=== PATIENT | male | born 1945 | race Caucasian/White ===

== ENCOUNTER → 2025-05-09 13:37 | Outpatient (REF) | payer MEDICARE, SELFPAY | LOC: RAD 13:37 | PROVIDERS: ATTENDING PHYSICIAN Podiatrist Foot & Ankle Surgery; FAMILY PHYSICIAN Family Medicine; REFERRING PHYSICIAN Surgery Vascular Surgery | DX: S81.801S Unspecified open wound, right lower leg, sequela (principal); I87.2 Venous insufficiency (chronic) (peripheral) | CPT/HCPCS: 93970 ==

== ENCOUNTER 2025-05-30 06:02 | Day surgery (SDC) | payer MEDICARE, SELFPAY ==
[2025-05-23 09:06] VITALS: BMI 29.5
--- NOTE | 2025-05-25 12:50 | PTCARENOTE ---
Leigh Ann in office made aware of Hgb 7.5 and INR 1.99.
--- NOTE | 2025-05-25 13:23 | PTCARENOTE ---
Dr. Park made aware of Hgb 7.5. Requesting T&S be ordered by surgeon. Leigh Ann in office made aware.
[2025-05-30] VITALS (22 sets, daily range): BP systolic 97–209; BP diastolic 51–194; BMI 28.6
[2025-05-30] MEDS: PERIDEX 0.12% ORAL RINSE 15 ML PO (07:04)
[2025-05-30] MEDS: NSS 500 IV (07:04)
--- NOTE | 2025-05-30 07:25 | W.SUR.PREOP ---
Pre-Operative Surgical Note
-
I have examined this patient prior to the performance of the scheduled procedure.
The patient's condition is unchanged from the time of the current History and
Physical and the patient is able to undergo the scheduled procedure.
--- NOTE | 2025-05-30 08:49 | OR.RPT ---
Operative Report
Operative Report
Date of Operation: 05/30/2025
Pre Op Diagnosis: Symptomatic venous insufficiency, right lower extremity
Post Op Diagnosis: Symptomatic venous insufficiency, right lower extremity
Procedure: Radiofrequency endovenous ablation of right great saphenous vein (distal calf puncture site)
Surgeon: Seun Alicea III, MD
Assembly And Packing Supervisor: Casey Sampson MD PhD PGY-7
Anesthesia: Sedation/local
Complications: None
Estimated Blood Loss: Minimal
History and Indications for Procedure: 79-year-old male with symptomatic venous insufficiency of the right lower extremity
Procedure in Detail: Mg Cordova was correctly identified and placed supine on the operating table. After adequate induction of anesthesia the right leg was frog-legged and the table placed into a reverse Trendelenburg position. The right leg was
prepped and draped in the usual sterile fashion. A timeout procedure was performed with the nursing and anesthesia staff confirming the patient's identity as well as the nature and laterality of the procedure.
The right great saphenous vein was identified using ultrasound guidance. The vein was visualized from the ankle to the saphenofemoral junction. An appropriate site for access was identified at the distal calf. Local anesthesia was infiltrated
into the proposed puncture site. The right great saphenous vein was accessed with a micropuncture needle under ultrasound guidance and the 7 [place] sheath was placed. Under direct ultrasound guidance the 100 cm length /7 cm tip radiofrequency
ablation catheter was advanced towards the saphenofemoral junction. Using a real-time direct ultrasound measurement the tip of the catheter was positioned 2.5 cm from the saphenofemoral junction. The position of the catheter was then externally
marked using the white plastic doughnut on the catheter at the sheath exit site. Using ultrasound guidance Tumescent solution was then infiltrated circumferentially around the right great saphenous vein from the sheath insertion site to the tip of
the catheter near the saphenofemoral junction. At this point the table was flattened out. The right great saphenous vein was then ablated using 2 treatment cycles at each segment. Once completed the sheath and catheter were removed. Direct
manual pressure was held on the puncture site and hemostasis was achieved. A sterile dressing was applied.
The patient's leg was cleaned and then wrapped with an Brian wrap from the toes to the proximal thigh. The patient tolerated the procedure well was taken to the recovery room in good condition.
Attestation: I was present and responsible for the entire procedure
Signed:
Seun Alicea III, MD
Vascular Surgery
[facility]
--- NOTE | 2025-05-30 08:51 | W.SUR.POST ---
Surgical Immediate Post Op
Note
Pre Op Diagnosis: RLE veinous reflux
Post Op Diagnosis: RLE veinous reflux
Procedure Performed: RLE GS radiofrequency ablation
Primary Surgeon: Seun Alicea MD
Secondary Surgeons: Casey Sampson MD PhD
Anesthesia: Per Anesthesia
Estimated Blood Loss: 1 cc
Fluids: Per Anesthesia
Drains/Shunts: NA
Specimens/Cultures: NA
Doppler/Duplex/Angio (Y/N): Vascular US of RIGHT GS
Complications: None
Operative Findings: Successful radiofrequency ablation of RLE GSV wih stick site at mid-calf
--- NOTE | 2025-05-30 09:16 | SUR.PHASEI ---
Pt still unresponsive. Sternal rub performed and no response. Dr Jean made aware and in to evaluate. Nail med pressure applied to b/l hands and pt withdrew b/l. Pupils equal and reactive. Per Dr Jean continue to monitor and will re-evaluate.
Bs checked and =104.
[2025-05-30 09:20] LABS: Glucose - Point of Care 104 mg/dl (70-99)
--- NOTE | 2025-05-30 10:40 | W.PN.UPDATE ---
Update Note
Progress Note Update
Called to bedside by RN in [facility] recovery bay 8
Patient noted to be having some slurred/slow speech.
Patient evaluated at bedside with present. Patient can easily identify objects and repeat words but speech is thick/slurred. Patient did recall the year being 1924.
Stroke alert initiated. Patient went to CT with neurology at bedside.
CT negative for bleed/infarct
After CT scan complete patient's speech seemed clearer. He correctly answered all questioning.
Returned to [facility] recovery. Will continue to monitor speech over the next hour per recommendation of neurologist.
All questions answered at bedside. Dr. Alicea aware.
--- NOTE | 2025-05-30 10:43 | CON.NEURO ---
Addendum entered and electronically signed by Don Renee MD 05/30/25 13:47:
Studies reviewed.
I have personally examined the patient. I reviewed and agree with the SOLE STITCHER HAND's Note.
My addenda:
Awake, alert, interactive. No acute distress.
Speech mildly thick.
Follows 2-step requests w/o difficulty. No tremor.
Extra-ocular movements grossly intact.
Facial movements full and symmetric. Hearing intact to normal conversational volume.
Normal UE movements bilaterally.
Neck: full ROM.
Chest: no dyspnea
Heart: no JVD
Ext: (-) Clubbing, (-) Cyanosis, (-) Edema
IMPRESSIONS/RECOMMENDATIONS:
Abrupt onset of dysarthria. Initially seeming consistent with acute onset stroke, now not thought to be so based on unremarkable plain CT of head, unremarkable CT perfusion, and unremarkable CT angiogram. Now more likely secondary to needed
sedation.
Continue usual therapies
Goal of normotension
Patient will require outpatient evaluation for cervical lymphadenopathy of unclear etiology
D/W patient / family / nursing
Total Critical Care Time=�40 minutes.
The neurological system is affected and the action required by me to prevent further deterioration or potential was control over the item listed first in the Impressions and Recommendations section of this note.
I was present and personally examined the patient.� I discussed patient care with other professional health care providers.
Also discussed with family.
All questions answered.
Will continue to follow as needed.
Original Note:
Documented by User: Laurie Molina NP 05/30/25 13:12
Neuro Assessment/Plan
Assessment
The patient is a 79 year old male with a past medical history of HTN, afib on Eliquis, anemia, chronic venous insufficiency, presented to [facility] on 05/29/2025 for vascular procedure becoming dysarthric immediately following prompting a stroke alert.
Head CT:
1. No CT evidence for acute intracranial hemorrhage or transcortical infarct.
2. Mild to moderate periventricular white matter leukoaraiosis.
3. Mild diffuse cerebral and cerebellar volume loss.
4. Low-lying right cerebellar tonsil.
5. Mild sphenoid sinusitis.
ASPECT score: 10
NECK CTA:
1. MODERATE CERVICAL LYMPHADENOPATHY (largest lymph node 2.5 cm in the right posterior triangle). Diagnostic possibilities are (1) malignant lymphadenopathy (lymphoma or metastatic disease) or (2) benign infectious or inflammatory lymphadenopathy.
2. Lobular asymmetric soft tissue in the left side of the base of the tongue and left hypopharynx partially effacing the left vallecula. Diagnostic possibilities are (1) asymmetric tonsillar hypertrophy or (2) squamous cell carcinoma.
3. Large 4.4 cm solid nodule in the right lobe of the thyroid gland.
4. Mild mediastinal lymphadenopathy.
5. Moderate-sized right and small left pleural effusions.
6. Mild calcific atherosclerotic plaque in both proximal ICAs causing less than 25% diameter stenosis.
7. Severe multilevel cervical discogenic degenerative disease with small disc-osteophyte complexes causing mild multilevel spinal cord compression and central canal stenosis.
HEAD CTA:
1. Moderate calcific atherosclerotic plaque in both intracranial internal carotid arteries.
2. Mild periventricular white matter leukoaraiosis in both cerebral hemispheres.
3. Low-lying right cerebellar tonsil.
Plan
Impression: abrupt onset of dysphasia and confusion most likely as a side effect from anesthesia considering symptoms improving vs stroke
-obtain head CT
-obtain head and neck CTA
-continue Eliquis when approved by vascular
-if speech does not improve completely, consider brain MRI to rule out stroke
-follow up with PCP regarding CTA findings
All questions encouraged and answered, plan of care discussed with Dr. Renee, vascular surgery, patient and
Consultation
Order
Date of Consultation: 05/30/25
Requesting Provider: vascular surgery
Reason for Consult: stroke alert
Subjective/Objective
Subjective Data
Date of Service: May 30, 2025
The patient is a 79 year old male with a past medical history of HTN, afib on Eliquis, anemia, chronic venous insufficiency presented to [facility] on 05/29/2025 for vascular procedure becoming dysarthric immediately following prompting a stroke alert.
His last dose of Eliquis was on Thursday. 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 This has not resulted in
meaningful wound healing by itself and vascular recommended ablation. This morning he went in for endovenous ablation of right great saphenous vein around 10:10 and was asymptomatic. Had propofol during procedure. Came out of procedure around 10:30
and was noted to be dysarthric. Stroke alert called. His NIHSS was 2 for dysarthria and confusion. He was taken to CT. Head CT showed no acute intracranial abnormality. CTP unrevealing. CTA did not show any significant stenosis or LVO. After imaging
symptoms resolved and NIHSS 0 not a TNK candidate.
Objective Data
Vital Signs
Temp Pulse Resp BP Pulse Ox
97.2 F 67 15 146/91 98
05/30/25 09:30 05/30/25 10:00 05/30/25 10:00 05/30/25 09:58 05/30/25 09:45
Patient Allergies
No Known Allergies Allergy (Verified 06/15/20 07:35)
CVA Assessment
Onset of Stroke Symptoms
Onset of symptoms known: Yes
Date of onset of symptoms: 05/30/25
Time of onset of symptoms: 10:30
Time pt last seen normal is known: Yes
Date last time pt seen normal: 05/30/25
Time last time pt seen normal: 10:10
NIH Stroke Score
Level of Consciousness: 0 - Alert
LOC Questions: 1-Answers one correctly
LOC Commands: 0-Performs both correctly
Best Horizontal Gaze: 0-Normal
Visual Chowdhury: 0=Normal, no visual loss
Facial Palsy: 0=Normal, symmetrical
Motor - Right Arm: 0=No drift 10 seconds
Motor - Left Arm: 0=No drift 10 seconds
Motor - Right Le-No drift 5 seconds
Motor - Left Le-No drift 5 seconds
Limb Ataxia: 0-Absent
Sensation: 0-Normal
Best Language: 0-No aphasia
Dysarthria: 1-Mild slurring
Extinction and Inattention: 0-No abnormality
NIH Total Score:: 2
Tenecteplase Contraindications
Inclusion and Exclusion criteria reviewed: Yes
IAT Contraindications: NIHSS < 6
Physical Exam
-
General: No Apparent Distress and Comfortable
Eyes: Round OU
HEENT: Normocephalic, Atraumatic and Anicteric
Neck: Full Range of Motion
Respiratory: No Dyspnea
Cardiac: No JVD
GI: Non-distended
Skin: Unremarkable
Extremities: No Clubbing, No Cyanosis and No Edema
Psych: Unremarkable
Extended Neurological Exam
Mood & Affect: Mood Unremarkable
Attention Span & Concentration: Awake, Alert, Interactive and Other (oriented to person, month but not year)
Memory: Vague and Incomplete Historian
Speech: Dysarthric
Cranial Nerve II: Left Eye: Visual Chowdhury Intact
Cranial Nerve II: Right Eye: Visual Chowdhury Intact
Cranial Nerves III, IV, : Extraocular Movement: Extraocular Movement Full in all Directions
Cranial Nerve VII: Facial Symmetry: Normal Facial Symmetry
Cranial Nerve VIII: Hearing: Unremarkable Hearing to Normal Conversational Volume
Cranial Nerves IX, X: Palate Movement: Palate Elevation Symmetric
Cranial Nerve XII: Tongue Protusion: Midline
Muscle Strength, Overall: Full Throughout
Pronator Drift: No Drift in Upper Extremities and No Drift in Lower Extremities
Deep Tendon Reflexes: Unremarkable Throughout
Touch Sensation: Unremarkable and Double Simultaneous Stimulation Unremarkable
Coordination: [id number] Testing Unremarkable and Reaches for Objects without Difficulty
Medications
-
Active Medications
Generic Name Dose Route Start Last Admin
Trade Name Freq PRN Reason Stop Dose Admin
Acetaminophen 650 mg 05/30/25 08:39
Acetaminophen 325 Mg Tablet PO 06/27/25 08:38
Q4HPRN PRN
mild pain
Fentanyl Citrate 25 mcg 05/30/25 07:21
Fentanyl (50 Mcg/Ml) 100 Mcg/2 Ml Ampul IV 05/31/25 07:21
[id number] PRN
shivers
Hydromorphone HCl 0.25 mg 05/30/25 07:21
Hydromorphone 0.25 Mg/0.5 Ml Syringe IV 05/31/25 07:21
[id number] PRN
severe pain
Sodium Chloride 500 mls @ 40 mls/hr 05/30/25 06:00 05/30/25 07:04
Nss IV 05/30/25 18:29 500 mls
[id number] LEESA Administration
Parenteral Electrolytes 1,000 mls @ 100 mls/hr 05/30/25 07:30
Normosol-R/Plasmalyte-A IV 05/31/25 07:21
PER PROTOCOL LEESA
Morphine Sulfate 1 mg 05/30/25 07:21
Morphine 2 Mg/Ml Syringe IV 05/31/25 07:21
[id number] PRN
moderate pain
Ondansetron HCl 4 mg 05/30/25 07:21
Ondansetron 4 Mg/2 Ml Vial IV 05/31/25 07:21
PACU-ONCEPRN PRN
nausea/vomiting
Prochlorperazine Edisylate 5 mg 05/30/25 07:21
Prochlorperazine 10 Mg/2 Ml Vial IV 05/31/25 07:21
PACU-ONCEPRN PRN
nausea/vomiting
Sodium Chloride 0 flush 05/29/25 15:00
Sodium Chloride 0.9% (Flush) Syringe IV 06/26/25 14:59
PER PROTOCOL LEESA
Home Medications
�Medication �Instructions �Recorded
apixaban 5 mg tablet (Eliquis) 5 mg PO BID #60 tabs 05/12/20
amlodipine 5 mg tablet 5 mg PO DAILY 05/19/25
furosemide 40 mg tablet 40 mg PO DAILY 05/19/25
losartan 100 mg tablet 100 mg PO DAILY 05/19/25
metoprolol succinate 50 mg 50 mg PO BID 05/19/25
tablet,extended release 24 hr
multivitamin 1 tab PO DAILY 05/19/25
prednisone 5 mg tablet 5 mg PO DAILY 05/19/25

Documented by User: Don Renee MD 05/30/25 13:42
CVA Assessment
NIH Stroke Score
NIH Total Score:: 2
Review of Systems
-
History Source: Patient
All other systems: Reviewed and negative
EENT: Negative Swallowing Difficulty
Respiratory: Negative Trouble Breathing
Cardiac: Negative Chest Pain
[2025-05-30 11:35] LABS: Glucose - Point of Care 96 mg/dl (70-99)
--- NOTE | 2025-05-30 12:34 | W.PN.UPDATE ---
Update Note
Progress Note Update
Reassessed pt at bedside with present. Pt has fully returned to baseline, no slurring of speech noted. Follows all commands. in agreement.
Pt is cleared for DC. Dr Alicea and Dr Renee aware.
--- NOTE | 2025-05-30 14:02 | RR ---
Addendum entered by Juan Alberto Beavers RN 05/30/25 14:03:
initialized 05/30/25 at 10:25
Original Note:
A Rapid Response was called on this patient, please see Rapid Response form.
--- NOTE | 2025-05-30 14:08 | PTCARENOTE ---
10:00 received pt from PACU into bay 7. Pt drowsy still under effects of anesthesia, follows simple commands TAVAREZ, mild slurred speech noted. Pt has full dentures removed. BP 146/91 afib on monitor HR 67. Will Monitor pt closely
10:10 Pts arrived at bedside and noticed slurred speech. Dentues inserted and slurred speech remained. I did bedside neuro evaluation pt had equal strength in all 4 extremities, equal pupillary reaction and symmetrical facial expression.
Slurred speech continued to be noted and Fifi ROLL BUILDER aware and at bedside
10:25 Rapid response/Stroke alert called NIH score at time of alert = 2 with mod/severe aphasia being only symptom
10:35 Stroke team arrived/stat CT scan ordered
--- NOTE | 2025-05-30 14:31 | PTCARENOTE ---
11:35 upon arrival back to room, Pts speech appears to be back to baseline with no aphasia noted NIH score 0. Will monitor pt closely . VSS
== END 2025-05-30 13:00 | disposition home or self-care (01) ==
LOC: CATH 06:02
PROVIDERS: ATTENDING PHYSICIAN Surgery Vascular Surgery; OTHER PHYSICIAN Internal Medicine Cardiovascular Disease; PRIMARYCARE PHYSICIAN Family Medicine
DX: I83.11 Varicose veins of right lower extremity with inflammation (principal); R47.1 Dysarthria and anarthria; R59.0 Localized enlarged lymph nodes; J90 Pleural effusion, not elsewhere classified; E04.1 Nontoxic single thyroid nodule; I65.23 Occlusion and stenosis of bilateral carotid arteries; M50.00 Cervical disc disorder with myelopathy, unspecified cervical region; M25.78 Osteophyte, vertebrae; R47.02 Dysphasia; Z79.01 Long term (current) use of anticoagulants; J32.3 Chronic sphenoidal sinusitis; I67.81 Acute cerebrovascular insufficiency; I10 Essential (primary) hypertension; I48.91 Unspecified atrial fibrillation; K21.9 Gastro-esophageal reflux disease without esophagitis; R47.01 Aphasia; Z79.52 Long term (current) use of systemic steroids
CPT/HCPCS: 36475; 0042T; 70450; 70496; 70498; 82962; 93005; C1769; Q9967

== ENCOUNTER → 2025-06-07 08:24 | Outpatient (REF) | payer MEDICARE, SELFPAY | LOC: DHVS 08:24 | PROVIDERS: ATTENDING PHYSICIAN Surgery Vascular Surgery; FAMILY PHYSICIAN Family Medicine | DX: I87.2 Venous insufficiency (chronic) (peripheral) (principal) | CPT/HCPCS: 93971 ==

== ENCOUNTER 2025-07-10 19:14 | Inpatient (IN) | payer MEDICARE, SELFPAY ==
[2025-07-10 12:51] VITALS: BP 143/82
[2025-07-10 13:42] LABS: Hematocrit 34.4 % (39.0-52.0); Hemoglobin 9.6 g/dL (13.0-18.0); Mean Corp Hgb Conc. 27.9 g/dL (33.0-37.0); Mean Corpuscular Volume 80.2 fL (80.0-94.0); Nucleated Red Blood Cells % 0 % (-); Platelet Count 121 10^3/uL (130-400); Red Cell Dist. Width 30.9 % (11.5-14.5)
[2025-07-10 13:57] LABS: ALT (SGPT) 15 U/L (0-50); AST (SGOT) 22 U/L (17-59); Albumin 3.6 g/dl (3.5-5.0); Alkaline Phosphatase 111 U/L (38-126); Blood Urea Nitrogen 17 mg/dl (9-20); Calcium 8.4 mg/dl (8.4-10.2); Carbon Dioxide 23 mmol/L (22-30); Chloride 113 mmol/L (98-107); Glucose 102 mg/dl (70-99); Potassium 4.6 mmol/L (3.5-5.1); Sodium 140 mmol/L (135-145); Total Protein 6.4 g/dl (6.3-8.2); eGFR > 60.00
--- NOTE | 2025-07-10 16:56 | ED.GENMED ---
History of Present Illness
General
Chief Complaint: Swelling
Source: patient and spouse
Exam Limitations: none
Time Seen by Provider: 07/10/25 15:56
Nursing documentation reviewed up to this point in time: agreed with
History of Present Illness
History of Present Illness:
Note:
CHIEF COMPLAINT(S)
Swelling and pain in the abdomen and legs.
HISTORY OF PRESENT ILLNESS
The patient is a 79-year-old male with a history of atrial fibrillation currently being managed with Apixaban (Eliquis) who presents due to swelling and pain that has progressively worsened over the past few weeks. The swelling and associated
discomfort originate from the abdominal area and extend down to the legs. The patient describes significant swelling local to the stomach, extending up to the lower extremities. Despite being on Furosemide (Lasix), the patient reports no improvement
in symptoms. He has consulted his primary care physician, who was uncertain about the cause of the swelling. The patient denies any significant shortness of breath. He mentions a past surgical procedure in the abdominal region. In addition, he
perceives discomfort from experiencing fluid accumulation described as 'water' in his abdominal area, which is causing substantial discomfort, especially given his history of leg swelling. The patient had recently undergone ultrasound imaging on
both legs, most recently on June 05, assessing post-surgical changes and edema.
EXTERNAL RECORDS REVIEWED
The patient mentioned having bilateral lower extremity ultrasounds performed, the latest of which was on June 05, following his surgery.
CHRONIC MEDICAL CONDITIONS SIGNIFICANTLY AFFECTING CARE
Atrial fibrillation managed with Apixaban (Eliquis).
PHYSICAL EXAM
General: Alert, no acute distress.
Skin: Warm, dry.
Head: Normocephalic, atraumatic.
Neck: Supple, trachea midline.
Eyes, Ears, Nose, Mouth, and Throat: Oral mucosa moist.
Cardiovascular: Normal peripheral perfusion, No edema.
Respiratory: Respirations are non-labored. rales at bases
Gastrointestinal: Abdomen nondistended. edema groin, penis, abdomen
Back: Normal range of motion, Normal alignment.
Musculoskeletal: Normal range of motion, normal strength.
Neurological: Alert and oriented to person, place, time, and situation, No focal neurological deficit observed.
Psychiatric: Cooperative, appropriate mood & affect.
PROBLEM LIST
Acute Problems:
- Abdominal swelling and pain.
- Bilateral leg swelling.
- Possible fluid accumulation.
Chronic Problems:
- Atrial fibrillation.
PLAN
- Order a chest X-ray to evaluate for possible fluid accumulation in the lungs.
- Start intravenous lines to facilitate diagnostic imaging and potential medications.
- Consider increasing the dosage of Furosemide (Lasix) or switching to a different diuretic to address fluid overload.
- Possible hospital admission for further evaluation and management of fluid overload, contingent on X-ray findings and clinical judgment.
- Ensure proper follow-up post-x-ray to update patient and manage condition accordingly.
DIFFERENTIAL DIAGNOSIS
The Differential Diagnosis includes, in no particular order and is not limited to:
- Congestive heart failure.
- Renal insufficiency or acute kidney injury.
- Pulmonary edema.
- Peripheral edema secondary to medication or cardiac origins.
- Post-surgical complications.
- Hypoalbuminemia.
- Liver cirrhosis with resultant ascites.
- Nephrotic syndrome.
- Pulmonary embolism.
- Medication side effect (fluid retention).
Note:
CARE-UPDATE
07/10/25 - 20:08
The patient presents with mild pulmonary edema consistent with heart failure exacerbation. The plan is to admit for management of congestive heart failure exacerbation, with initiation of intravenous diuretics as part of the treatment strategy.
Disposition:
SUMMARY OF ENCOUNTER
The patient, a 79-year-old male with a known history of atrial fibrillation managed with apixaban (Eliquis), presented to the emergency department with worsening swelling and pain in the abdomen and legs. Given the patients significant fluid
accumulation and discomfort, a diagnosis of congestive heart failure exacerbation was made. Management included the administration of intravenous diuretics to manage fluid overload. Due to ongoing symptoms and findings consistent with fluid
retention, hospital admission was warranted for further management.
DISPOSITION
Admit.
ASSESSMENT
The patient is experiencing congestive heart failure (CHF) exacerbation, along with atrial fibrillation, contributing to the symptoms of swelling and pain in the abdomen and legs.
EMERGENCY TREATMENTS ADMINISTERED
Intravenous furosemide (Lasix).
MANAGEMENT OF THE PATIENTS CARE WAS DISCUSSED WITH
Hospitalist.
MEDICATION RECONCILIATION
The patient is taking apixaban (Eliquis) and was administered intravenous furosemide (Lasix) in the emergency department.
MEDICAL DECISION MAKING
-Complexity of Data Reviewed:
Chronic conditions affecting care include atrial fibrillation. Differential diagnosis considered: congestive heart failure, peripheral edema secondary to cardiac origins, possible fluid accumulation.
-Data:
Category 1
Non-emergency department records reviewed, including external records of prior ultrasonographic assessments and management of atrial fibrillation with apixaban.
Category 3
Discussion of management with hospitalist regarding the need for admission and further evaluation and management of CHF exacerbation.
CRITICAL CARE TIME
The note did not include information related to critical care time.
DIAGNOSIS
Congestive Heart Failure Exacerbation (ICD-10: I50.9)
Atrial Fibrillation (ICD-10: I48.91)
Past History
Past History
ED Past Medical History: HTN
ED Past Surgical History: None
Social History
Tobacco: Former smoker
Alcohol: None
Personal:
Living: with family
Phy Exam
Physical Exam
Physical Exam:
,
Scores
Heart Failure Risk
Heart Failure Risk Score: Yes
History of Stroke or TIA: No
History of intubation for respiratory distress: No
Heart rate on ED arrival >/= 110: No
SaO2 <90% on arrival on room air: No
HR >/=110 during 3min walk test (or too ill to perform test): Yes
ECG has acute ischemic changes: No
Urea >/=12mmol/L (BUN 33.6mg/dL): No
Serum CO2>/=35mmol/L: No
Troponin I or T elevated to [place] Level (0.4mg/dL): No
NT-proBNP >/=5,000ng/L (5,000pg/ml): No
HF Risk Score: 2
Admission Status: MEDIUM RISK 9.2% Consider observation or discharge to home with homecare & f/u visit to PCP/Controls Project Engineer, or SNF for treatment
Course
Orders/Labs/Results
Orders:
Orders
07/10/25 12:59
Electrocardiogram (*1) Urgent
Reason for Study: Other
Other Reason for Exam: edema
07/10/25 13:00
EKG- Treatment ONCE
07/10/25 13:23
Complete Blood Count/With Diff Urgent
Comprehensive Metabolic Panel Urgent
Pro-BNP [NT-proBNP] Urgent
Troponin I Urgent
07/10/25 16:50
Add On- LAB Urgent
Tests Added?: troponin
CR Chest - 2 Views Urgent
Comment:
Reason For Exam: short of breath, edema
07/10/25 17:27
Furosemide [Lasix] 40 mg IV NOW STA
07/10/25 18:23
Admit/Transfer Patient As Directed
Co-Sign Provider:
Level of Care: Inpatient admission
Assign to:: Telemetry
Physician / Group: shaji santiago
Diagnosis: CHF exacerbation
Reason for Telemetry: Subacute Heart Failure
Date to Stop Telemetry: 07/12/25
Time to Stop Telemetry: 11:00
Reason for Hospitalization: CHF
Expected length of stay greater than two midnights?: Yes
ELOS- Estimated Length of Stay in days: 3
I certify the patient meets the requirements for IP care: Yes
PRN Pain Medication Management As Directed
May give lesser potent ordered pain med per pt: Yes
preference::
Protocol:: Medication orders for pain may be administered in a
manner that supports deferring to patient preference
when the pt is:
- Requesting an ordered lesser potent pain medication.
Least to most potent pain medications are defined
as: acetaminophen < NSAID < tramadol < opioids
(morphine, oxycodone, hydromorphone).
- Requesting a lesser dose of the same medication IF
ORDERED.
- Requesting a less intrusive route of administration
if both routes are prescribed by the provider (PO <
IV).
07/10/25 18:26
Code Status As Directed
Resuscitation Status: Full Code
07/12/25 11:00
DC Protocol for Telemetry ONCE
Abnormal Lab Results
07/10/25
13:23
RBC 4.29 L 10^6/uL
(4.70-6.10)
Hgb 9.6 L g/dL
(13.0-18.0)
Hct 34.4 L %
(39.0-52.0)
MCH 22.4 L pg
(27.0-31.0)
MCHC 27.9 L g/dL
(33.0-37.0)
RDW 30.9 H %
(11.5-14.5)
Plt Count 121 L 10^3/uL
(130-400)
Lymphocytes % 18.2 L %
(20.5-51.1)
Monocytes % 9.7 H %
(1.7-9.3)
Chloride 113 H mmol/L
(98-107)
Glucose 102 H mg/dl
(70-99)
Total Bilirubin 1.4 H mg/dl
(0.2-1.3)
07/10/25 13:23
07/10/25 13:23
Vital Signs
Initial and Last Documented VS:
Initial Vital Signs
Temp Pulse Resp BP Pulse Ox
97.6 F 82 20 143/82 99
07/10/25 12:51 07/10/25 12:51 07/10/25 12:51 07/10/25 12:51 07/10/25 12:51
Last Documented Vital Signs
Temp Pulse Resp BP Pulse Ox
98.1 F 78 18 111/81 100
07/10/25 19:35 07/10/25 19:35 07/10/25 19:35 07/10/25 19:35 07/10/25 19:37
*Pulse Oximetry
SaO2: 99
Oxygen Mode of Delivery: Room air
Patient hypoxic: no
*Critical Care Note
Total Time (30-74mins, 75-104mins- exclusive of procedures): Not Applicable
ED Attending Note
-
Portions of this chart may have been created with voice recognition software.� Occasional wrong word or��sound alike� substitutions may have occurred due to the inherent limitations of voice recognition software.
Discharge Plan
Departure
Patient Disposition: Admit
Date of Disposition: 07/10/25
Time of Disposition: 17:25
Admit to: Telemetry
Presentation/result/management discussed w/ accepting MD/DO: Hospitalist
Patient with high blood pressure during this ER visit?: Yes
Condition: Fair
Discharge Problem:
Acute exacerbation of CHF (congestive heart failure), Atrial fibrillation
Interventions
Interventions:
*Risk Screen - Suicide Last Done: 07/10/25 12:51
*General Assessment Last Done: 07/10/25 12:51
ED- Cardiac Assessment Last Done: 07/10/25 19:37
ED- Pulmonary Assessment Last Done: 07/10/25 19:37
ED-Skin Assessment Last Done: 07/10/25 19:36
[2025-07-10 17:32] VITALS: BP 142/78
[2025-07-10] MEDS: LASIX 40 MG IV (17:37)
[2025-07-10 17:44] LABS: Troponin I < 0.012 ng/ml
--- NOTE | 2025-07-10 17:52 | HPS.HSE ---
Family Physician
-
Family Physician: Donn Gottlieb
Chief Complaint
-
Bilateral lower extremities edema
History of Present Illness
79-year-old male with a history of atrial fibrillation currently being managed with Apixaban (Eliquis), hypertension, CHF, A-fib, rheumatoid arthritis who presents due to bilateral lower extremities swelling, scrotal edema and abdominal edema for
past 2.5 weeks. denied worsening of sob. gained 5lbs in one week. patient was evaluated by cardiology with no acute intervention. he was also seen by PCP. patient continued to take Lasix with no improvement in his symptoms. denied cough, congestion,
fever, chills. denied LACY, dizzy or syncope. denied abdominal pain,n,v,d. denied dysuria or hematuria.
Concern for CHF. Patient initiated on IV Lasix. Admitting for further management
Medical History
Past Medical History
Past Medical History: Reports Other
Additional Past Medical History:
Pulmonary hypertension, white coat syndrome, CHF, anemia, A-fib, thrombus or arthritis, hypertension
Past Surgical History: Reports Other
Additional Past Surgical History:
Hernia repair, cardioversion
Social History
Tobacco: Former Smoker
Alcohol: None
Drug: None
Family History
Family History: Not pertinent
Allergies / Home Medications
Allergies reflects when Allergies were last updated in [employer].
Home Medications with original date entered in [employer] [facility]
Allergy/Medication List:
Allergies
Allergy/AdvReac Type Severity Reaction Status Date / Time
No Known Allergies Allergy Verified 07/10/25 12:59
Home Medications
apixaban 5 mg tablet (Eliquis) 5 mg PO BID #60 tabs 05/12/20
amlodipine 5 mg tablet 5 mg PO DAILY 05/19/25
furosemide 40 mg tablet 40 mg PO DAILY 05/19/25
losartan 100 mg tablet 100 mg PO DAILY 05/19/25
multivitamin 1 tab PO DAILY 05/19/25
prednisone 5 mg tablet 5 mg PO DAILY 05/19/25
acetaminophen 650 mg tablet,extended release 1,300 mg PO [id number] PRN mild pain 07/10/25
ferrous sulfate 325 mg (65 mg iron) tablet 325 mg PO DAILY 07/10/25
metoprolol tartrate 50 mg tablet (Lopressor) 50 mg PO BID 07/10/25
Review of Systems
-
Constitutional: Reports No Symptoms and Weight Gain
EENT: Reports No Symptoms
Abdomen/GI: Reports No Symptoms
: Reports No Symptoms
Musculoskeletal: Reports Edema (Bilateral lower extremities edema)
Skin: Reports No Symptoms
Neurological: Reports No Symptoms
Endocrine: Reports No Symptoms
Hematologic/Lymphatic: Reports No Symptoms
Psych: Reports No Symptoms
Physical Exam
Vital Signs
Vital Signs
Temp Pulse Resp BP Pulse Ox
97.6 F 80 18 142/78 99
07/10/25 12:51 07/10/25 17:32 07/10/25 17:32 07/10/25 17:32 07/10/25 17:32
Physical Exam
General: Well Developed, Well Nourished and No Apparent Distress
HEENT: NormoCephalic, Moist mucous membranes and Atraumatic
Respiratory: Clear
Cardiac: S1/S2 and Regular Rhythm; No Murmur or Rub
GI: Soft, Non Tender, Non Distended and Normal Bowel Sounds; No Organomegaly
Rectal: Deferred by Provider
Musculoskeletal: No Clubbing, No Cyanosis and Other (Bilateral lower extremities edema)
Skin: No Rash
Neuro: AO x 3 and Nonfocal/grossly intact
Psych: Calm
Laboratory Results
-
07/10/25 13:23
07/10/25 13:23
Laboratory Results
Total Bilirubin 1.4 mg/dl (0.2-1.3) H 07/10/25 13:23
AST 22 U/L (17-59) 07/10/25 13:23
ALT 15 U/L (0-50) 07/10/25 13:23
Alkaline Phosphatase 111 U/L (38-126) 07/10/25 13:23
Troponin I < 0.012 ng/ml 07/10/25 13:23
Data Reviewed
-
Diagnostic Radiology: Report Reviewed by me
Lab Data: Labs Reviewed by me
Impression/Plan
-
# CHF exacerbation
- Diuretics continued
- Strict PERRY, daily weight, fluid restriction
- Obtain echocardiogram
- Cardiology consult
- BNP 1990
- Chest x-ray with impression of Findings suggest possibility of mild congestive heart failure.No evidence of pneumonia.
# Anemia of chronic disease
- Hemoglobin stable at 9.6, no active bleeding
- Continue to monitor
# Essential hypertension
- Norvasc, losartan, metoprolol continue
# Permanent A-fib
- Continued Eliquis and metoprolol
# Rheumatoid arthritis
- On prednisone
# DVT prophylaxis
- Eliquis
# CODE STATUS
- Full code
--- NOTE | 2025-07-10 18:43 | W.PN.UPDATE ---
Update Note
Progress Note Update
This note serves as an addendum to the H&P by client customer manager [employer]OK[employer]�
Mariajose POPPY�
HPI�
79M HX AF, on Apixaban, HTN, (Eliquis), hypertension, CHF, RA seen at ER
- Edema at B/L Legs, scrotal and abdominal edema for past 2.5 weeks
- gained 5lbs in one week
- was evaluated by cardiology and PCP with no acute intervention
- OP PO Lasix with no improvement in his symptoms.
ROS
denied cough, congestion,
deneid fever, chills.
denied LACY, dizzy or syncope.
denied abdominal pain,n,v,d.
denied dysuria or hematuria.
Relevant VS
Temp Pulse Resp BP Pulse Ox
97.6 F 80 18 142/78 99
07/10/25 12:51 07/10/25 17:32 07/10/25 17:32 07/10/25 17:32 07/10/25 17:32
General: NAD
HEENT: Moist mucous membranes and Atraumatic
Neck: distend EJD
Respiratory: Clear
Cardiac: S1/S2 and Regular Rhythm;
GI: Soft, Non Tender, Non Distended and Normal Bowel Sounds
Lower abdominal edema
MS: Bilateral lower extremities edema
: scrotal edema
Skin: No Rash
Neuro: AO x 3 and Nonfocal/grossly intact
Psych: Calm
Relevant Data
09/11/20 05/23/25 07/10/25
11:35 09:21 13:23
Hgb 7.5 L 9.6 L
Plt Count 177 121 L
Creatinine 1.0
eGFR > 60.00
Uex-S-Siokflhmcjv Pept 786 1990
Troponin I < 0.012
05/11/20 TTE
60-65%.
Mild mitral regurgitation.
Trace tricuspid regurgitation.
Pulmonary hypertension
No prior study available for comparison.
EKG
ATRIAL FIBRILLATION
LEFT AXIS DEVIATION
CANNOT RULE OUT ANTERIOR INFARCT , AGE UNDETERMINED
ABNORMAL ECG
WHEN COMPARED WITH ECG OF 30-May-2025 11:32,
NO SIGNIFICANT CHANGE WAS FOUND
Confirmed by NIRMALA SKELTON MD ([id number]) on 07/10/2025 3:04:21 PM
CXR
suggest possibility of mild congestive heart failure.
Last hospitalist admission: 2019
ASSESSMENT & PLAN
Alvarez and hypervolemia due to fluid retention due to prednisone dependent RA
acute chr CHF suspect chr HFpEF
Associated anasarca
- IV Lasix 40 daily
- ECHO in AM
- Daily Wt, IOs
- CBC acrd consulted
Anemia of chronic disease/ inflammatory
- Hemoglobin stable at 9.6, no active bleeding
- Continue to monitor
HX Rheumatoid arthritis
- On chr prednisone
Essential hypertension
- Norvasc, losartan, metoprolol continue
Permanent A-fib
- on Eliquis and metoprolol
DVT Px: on [employer] Eliquis
Full code
IP TLM
[2025-07-10 19:32] VITALS: BP 111/81
[2025-07-10 19:35] VITALS: BP 111/81
[2025-07-10 21:33] VITALS: BMI 28.5
[2025-07-10 21:43] VITALS: BP 133/83; BMI 28.5
[2025-07-10] MEDS: ELIQUIS PO (21:52)
[2025-07-10] MEDS: LOPRESSOR 50 MG PO (22:41)
[2025-07-10 23:49] VITALS: BP 131/67
[2025-07-11 03:01] VITALS: BP 134/71
[2025-07-11 06:00] VITALS: BMI 28.2
[2025-07-11 07:00] VITALS: BP 110/75
--- NOTE | 2025-07-11 07:47 | CON.CAR ---
Addendum entered and electronically signed by Jadon Fountain MD 07/11/25 14:15:
I saw and evaluated the patient, and I provided the substantive portion of the medical decision making.
I reviewed and agree with the note by Dr Haddad and it accurately reflects our care.
I personally performed the medical decision making of the this encounter and my assessment and plan is below:
Significant LE edema will cont IV diuresis
Echo:SUMMARY
1. Normal LV size, thickness, and systolic function. No wall motion abnormalities. LVEF 60-65%.
2. Mildly enlarged right ventricle with normal right ventricular systolic function.
3. Mild to moderate mitral regurgitation.
4. Pulmonary hypertension, est PASP 69 mmHg and est right atrium pressure 15 mmHg. Moderate tricuspid regurgitation.
5. Significant biatrial enlargement.
6. Compared to echocardiogram report dated 05/11/2020 pulmonary hypertension has increased from estimated 53 mmHg. MR and TR have progressed.
Original Note:
Consultation
Consultation Request
Date/Time Consultation Requested: 07/10/2025 21:30
Date/Time Consultation Performed: 07/11/2025 08:00
Requesting Provider: Mariajose Knowles
Performing Provider: Jadon Fountain
Reason for Consultation: Acute exacerbation of CHF
Medical History
-
Chief Complaint: Bilateral lower extremity swelling, scrotal swelling, abdominal swelling
History of Present Illness:
Mg is a 79-year-old male with a past medical history of atrial fibrillation (on Eliquis) status post cardioversion in 2019, possible CHF history, chronic venous insufficiency status post right great saphenous vein radioablation in May [address] Alicea, rheumatoid arthritis who presented with complaints of worsening bilateral lower extremity swelling, scrotal edema, abdominal swelling.
He reports over the last 6 to 7 months he has had progressive bilateral lower extremity swelling. Initially he developed bilateral swelling of the lower extremities right worse than left with ulcerations on the right leg. He was seen by [facility]
wound care for 3 months and told to follow-up with vascular. He met with Dr. Alicea who did a bilateral ultrasound of the lower extremities and the decision at that time was made to proceed with radiofrequency ablation of the right great saphenous
vein for symptom management. The procedure was uncomplicated and completed on 05/30/2025. The patient had an uncomplicated postoperative course, however he reports that he continued to have the bilateral lower extremity swelling that then
progressed up his legs, into his groin and had a resulting feeling of fullness in the abdomen. He regularly follows with [facility] cardiology Dr. Braga in [place]. 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
no change in management. He had been taking Lasix 40 mg daily during this time without any reduction in swelling. He utilizes leg elevation intermittently when watching TV and use of compression socks with minimal relief. He reports some symptoms
of orthopnea and a relative increase in shortness of breath when walking his dog up and down hills, however he does not endorse any chest pain, PND, or cough. He has no recent illnesses, no fevers, no chills, no nausea, no vomiting, no diarrhea.
He reports taking all of his medications as prescribed during this time.
On arrival to the ED his vital signs were stable, he was afebrile, he was not hypoxic, chest x-ray done demonstrated potential mild CHF. proBNP was slightly elevated at 1989. Chemistry demonstrated elevated bilirubin, negative troponin.
Hematology labs demonstrated no leukocytosis, microcytic anemia with hemoglobin of 10.0
He was given 1 dose of IV Lasix, oral Lasix was held. Cardiology was consulted for concerns of congestive heart failure.
On talking to the patient this morning he has no acute complaints other than lower extremity swelling.
Past Medical History
Past Medical History: Other (See HPI)
Past Surgical History: Other (Hernia repair 1953, tonsillectomy 1950, right knee arthroscopy 1994, cardioversion 2019, right heart cath December 2023, endarterectomy of the right leg June 2025)
Social History
Tobacco: Former Smoker
Alcohol: None
Drug: None
Personal:
Living: With Family
Employment: Retired
Family History
Family History: Reviewed & Not Pertinent
Allergies / Home Medications
Allergy/AdvReac Type Severity Reaction Status Date / Time
No Known Allergies Allergy Verified 07/10/25 12:59
�Medication �Instructions �Recorded �Confirmed �Type
apixaban 5 mg tablet (Eliquis) 5 mg PO BID #60 tabs 05/12/20 07/10/25 Rx
amlodipine 5 mg tablet 5 mg PO DAILY Blood Pressure 05/19/25 07/10/25 History
furosemide 40 mg tablet 40 mg PO DAILY Fluid 05/19/25 07/10/25 History
Retention/Swelling
losartan 100 mg tablet 100 mg PO DAILY Blood Pressure 05/19/25 07/10/25 History
multivitamin 1 tab PO DAILY Supplement 05/19/25 07/10/25 History
prednisone 5 mg tablet 5 mg PO DAILY IFLAMMATION 05/19/25 07/10/25 History
acetaminophen 650 mg 1,300 mg PO [id number] PRN mild pain 07/10/25 07/10/25 History
tablet,extended release
ferrous sulfate 325 mg (65 mg 325 mg PO DAILY Supplement 07/10/25 07/10/25 History
iron) tablet
metoprolol tartrate 50 mg tablet 50 mg PO BID Blood Pressure 07/10/25 07/10/25 History
(Lopressor)
Review of Systems
-
History Source: Patient
All other systems: Negative unless noted
Physical Exam
Vital Signs
Temp Pulse Resp BP Pulse Ox
97.6 F 76 18 110/75 94
07/11/25 07:00 07/11/25 07:00 07/11/25 07:00 07/11/25 07:00 07/11/25 07:00
Lab Results
Troponin I < 0.012 ng/ml 07/10/25 13:23
Wda-D-Pgpcioewycq Pept 1990 pg/ml 07/10/25 13:23
Physical Exam
General: Well Developed, Well Nourished, No Apparent Distress and Comfortable
HEENT: Normocephalic, Anicteric, Moist Mucous Membranes and Atraumatic
Respiratory: Clear and Non Labored Respirations; Negative Wheezes, Crackles or Rhonchi
Cardiac: S1/S2 and Irregular Rhythm; Negative Murmur
Breast: N/A
GI: Soft, Non Tender, Non Distended and Normal Bowel Sounds
Musculoskeletal: No Clubbing, No Cyanosis and Edema (Bilateral lower extremity edema extending into the groin, bilateral stasis dermatitis, clean dry and intact wound dressing over the right medial malleolus)
Skin: Warm and Dry
Neuro: AO x 3
Psych: Calm
Impression / Plan
-
Mg is a 79-year-old male with a past medical history of atrial fibrillation (on Eliquis) status post cardioversion in 2019, possible CHF history, chronic venous insufficiency status post right great saphenous vein radioablation in May [address] Alicea, rheumatoid arthritis who presented with complaints of acute on chronic bilateral lower extremity swelling, scrotal edema, abdominal swelling over the last few weeks.
#Acute Exacerbation of HFpEF
#Chronic bilateral venous insufficiency
Etiology most likely multifactorial secondary to chronic bilateral venous insufficiency with additional component of acutely worsening CHF. OP eval from 2019 shows concern for hypertensive cardiomyopathy leading to HFpEF, with afib worsening CO and
leading to progressive LE edema, now known to be compounded by evidenced venous insufficiency.
- proBNP on admission slightly elevated 1989, chest x-ray showing mild cardiomegaly, trace pleural effusion, slight prominence of pulmonary vasculature which appears stable
- Echocardiogram from 2019 demonstrates LVEF of 60 to 65%, LV systolic function
- Will recheck echo today
- c/w IV diuresis
- hold po lasix
- trend CMP, monitor lytes and replete as needed
- c/w IOs, daily weights
#Persistent Atrial Fibrillation
- rate controlled on BID Lopressor, ECG showing rate controlled afib
- c/w BB, Eliquis
#Essential Hypertension
- c/w amlodipine, lopressor, losartan
[2025-07-11 08:10] LABS: Hematocrit 35.7 % (39.0-52.0); Hemoglobin 10.0 g/dL (13.0-18.0); Mean Corp Hgb Conc. 28.0 g/dL (33.0-37.0); Mean Corpuscular Volume 79.7 fL (80.0-94.0); Platelet Count 131 10^3/uL (130-400); Red Cell Dist. Width 31.1 % (11.5-14.5); Reticulocyte Count 1.4 % (0.4-2.8)
[2025-07-11 08:18] LABS: ALT (SGPT) 15 U/L (0-50); AST (SGOT) 23 U/L (17-59); Albumin 3.8 g/dl (3.5-5.0); Alkaline Phosphatase 138 U/L (38-126); Blood Urea Nitrogen 16 mg/dl (9-20); Calcium 8.6 mg/dl (8.4-10.2); Carbon Dioxide 23 mmol/L (22-30); Chloride 111 mmol/L (98-107); Estimated Creatinine Clearance 64 ml/min; Glucose 71 mg/dl (70-99); HDL Cholesterol 49 mg/dl; LDH 218 U/L (120-246); LDL Cholesterol, Calculated 46 mg/dl; Magnesium 2.1 mg/dl (1.6-2.3); Potassium 4.4 mmol/L (3.5-5.1); Sodium 140 mmol/L (135-145); Total Protein 6.6 g/dl (6.3-8.2); Very Low Density Lipoprotein 12 mg/dl (0-30); eGFR > 60.00
[2025-07-11] MEDS: LOPRESSOR 50 MG PO ×2 (10:09→19:35)
[2025-07-11] MEDS: ELIQUIS 5 MG PO ×2 (10:09→19:35)
[2025-07-11] MEDS: COZAAR 100 MG PO (10:09)
[2025-07-11] MEDS: DELTASONE 5 MG PO (10:10)
[2025-07-11] MEDS: LASIX 40 MG IV (10:10)
[2025-07-11] MEDS: FEOSOL 325 MG PO (10:10)
[2025-07-11] MEDS: FLUSH (NSS) 2 FLUSH IV (10:10)
[2025-07-11] MEDS: NORVASC 5 MG PO (10:10)
[2025-07-11 10:39] VITALS: BP 146/86
--- NOTE | 2025-07-11 10:40 | W.PN.HOSP.TC ---
Today's Communication/Plan
-
see PN
Assessment / Plan
Assessment / Plan
79yo M with PMHX of Afib, HTN, RA on prednisone 5mg, chronic venous insufficiency with b/l LE lymphedema s/p R saphenous ablatio with in May 2025 came with worsening swelling up to his thigh and lower abdomen that became progressively worse
for past few weeks. Patient was not much compliant with his compression therapy. Admitted with concern for CHF exacerbation
A/P:
#Acute CHF exacerbation, most likely diastolic
ProBNP elevated
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
Echo pending
LAsix IV started and patient feeling better, however questionable if CHF exacerbation subacute or chronic
Daily weight, follow electrolytes, Cr
cardio consult
#b/l LE venous insufficiency
US LE in may with non-occlusive thrombus in R saphenous vein
repeat US LE
compression stocking s up to the thigh advised
diuretics
Elevate LE
Cont to follow with established vascular and wound care
#elevated direct bilrubin
#elevated alk.phos
no RUQ pain and no fevers, WBC WNL
Abd US reading pending
follow LFT
#Chronic anemia, MARY
follo with PCP
cont PO iron
#Persistent Afib
#EssentiaL HTN
#RA
cont home meds
DVT ppx Eliquis
Full code
I have spent at least 58 min reviewing chart, test results, communication with consultants and providing direct patient care
Anticipated Discharge: 24 - 48 hours
Subjective/Interval History
-
Date of Service: July 11, 2025
Objective Data
-
Labs:
Laboratory Results
07/11/25
07:10
WBC 7.8
Hgb 10.0 L
Hct 35.7 L
Plt Count 131
Sodium 140
Potassium 4.4
Chloride 111 H
Carbon Dioxide 23
BUN 16
Creatinine 1.0
Glucose 71
Calcium 8.6
Total Bilirubin 1.7 H
AST 23
ALT 15
Alkaline Phosphatase 138 H
Vital Signs:
Vital Signs
Temp Pulse Resp BP Pulse Ox
97.6 F 76 18 110/75 94
07/11/25 07:00 07/11/25 07:00 07/11/25 07:00 07/11/25 10:10 07/11/25 07:00
I&O
07/10/25 07/11/25 07/12/25
06:59 06:59 06:59
Intake Total 240 / 240
Output Total 1100 / 1100
Balance -860 / -860
Review of Systems
-
History Source: Patient
All other systems: Reviewed and negative
Physical Exam
-
General: No Apparent Distress
HEENT: Normocephalic
Respiratory: Clear to Auscultation
Cardiac: Regular Rhythm
GI: Soft, Nontender and Distended
Musculoskeletal: No Clubbing, No Cyanosis, Edema, Right Lower Extrem and Edema, Left Lower Extrem
Neuro: Awake, Alert, Oriented and AO x 3
Psych: Calm
--- NOTE | 2025-07-11 14:56 | PN.CDI ---
CDI
- -
CDI:
Physician Documentation Request
Admit Date: 07/10/25 19:14
Dear Doctor Maikol,
Please review the following and provide your response in the progress notes.
Clinical Indicators:
07/11 BILATERAL COMPRESSION ULTRASOUND OF LOWER EXTREMITY VEINS
#INDICATION: Bilateral lower extremity swelling and pain.
#...History of right greater saphenous vein thrombus.
#COMPARISON: 06/07/2025.
#...There is mild subcutaneous edema within the soft tissues of the right lower extremity.
#Occlusive thrombus is seen within the right greater saphenous vein
#...from the level of the proximal thigh to the mid calf, unchanged compared to prior study.
#IMPRESSION:
#...2. Occlusive superficial thrombus within the right greater saphenous vein from the
#...level of the proximal thigh to the mid calf, unchanged compared to prior ultrasound.
PN, 07/11
#b/l LE venous insufficiency
#...US LE in may with non-occlusive thrombus in R saphenous vein
Based on the above and your clinical assessment, please clarify which of the following accurately represents the acuity of the right greater saphenous vein thrombus:
Acute on Chronic
Chronic stable condition
Other (please specify)
Use of terms such as suspected, likely, concern for, or probable (associated with a specific diagnosis that is being evaluated, monitored, or treated as if it exists) are acceptable and can be coded in the inpatient setting, when documented at the
time of discharge.
Thank you,
Goldie Garner RN BSN CCDS
CDI Specialist
Please contact via tiger text
Please use your independent medical judgment in providing your response.
[2025-07-11 15:00] VITALS: BP 132/82
--- NOTE | 2025-07-11 15:54 | CM ---
Chart reviewed. Met with pt at bedside. IA completed. Lives in a ranch home with spouse with no steps at the front entrance. Hx of VN for wound care. DME: rolling walker, and raised toilet seats, both are not in use at this time. No hx of home O2,
VN, or SNF. No insecurities identified. Confirmed PCP, Rx, insurance and drug coverage.
PCP: Donn Gottlieb
Rx: [facility]: [place]
Plan: Home with possible VN Pt has significant peripheral edema impeding his ability to ambulate. Pt states he can only walk very short distances.
[2025-07-11 19:17] VITALS: BP 141/93
[2025-07-11 23:56] VITALS: BP 118/72
[2025-07-12 03:30] VITALS: BP 122/67
[2025-07-12 06:00] VITALS: BMI 27.3
--- NOTE | 2025-07-12 08:02 | W.PN.CD ---
Addendum entered and electronically signed by Ezio Hills MD 07/12/25 18:26:
Patient seen and examined in collaboration with PGY-2 resident; agree with below.
- Acute on chronic HFpEF; improving with IV diuresis.
- Exam: Heart irregular rate and rhythm, normal S1 and S2, 2/6 systolic murmur; lungs clear to auscultation bilaterally; abdomen soft; 2+ bilateral pitting edema with erythema.
- Continue Lasix 40 mg IV daily; will likely discharge patient home on Lasix 40 mg PO BID (was taking only Lasix 40 mg once daily at home--he will higher/more frequent dosing).
- Will reevaluate tomorrow.
Original Note:
Today's Communication / Plan
-
C/w IV diuresis, transition back to PO on discharge with dose increase to 40mg BID
F/u with PCP in 1 week after discharge
f/u with cardiology after discharge
Fluid restriction on d/c to 48oz
Impression / Plan
-
Mg is a 79-year-old male with a past medical history of atrial fibrillation (on Eliquis) status post cardioversion in 2019, possible CHF history, chronic venous insufficiency status post right great saphenous vein radioablation in May [address] Alicea, rheumatoid arthritis who presented with complaints of acute on chronic bilateral lower extremity swelling, scrotal edema, abdominal swelling over the last few weeks.
#Acute Exacerbation of HFpEF
#Chronic bilateral venous insufficiency
Etiology most likely multifactorial secondary to chronic bilateral venous insufficiency with additional component of acutely worsening CHF. OP eval from 2020 shows concern for hypertensive cardiomyopathy leading to HFpEF, with afib worsening CO and
leading to progressive LE edema, now known to be compounded by evidenced venous insufficiency.
- proBNP on admission slightly elevated 1989, chest x-ray showing mild cardiomegaly, trace pleural effusion, slight prominence of pulmonary vasculature which appears stable
- Echocardiogram from 2019 demonstrates LVEF of 60 to 65%, LV systolic function
- repeat showing similar LVEF, increased pulm htn compared to prior with progression of MR and TR
- Abd US (07/11) showing small R/LUQ ascites
- BL/LE US Doppler showing no DVT, soft tissue edema R>L, consistent with exam
- c/w IV diuresis
- down 4kg since admission
- hold po lasix; can transition back once off of IV
- increase to Lasix 40mg PO BID on discharge
- trend CMP, monitor lytes and replete as needed
- c/w IOs, daily weights
- Fluid restriction to 48oz
#Persistent Atrial Fibrillation
- rate controlled on BID Lopressor, ECG showing rate controlled afib
- c/w BB, Eliquis
#Essential Hypertension
- c/w amlodipine, lopressor, losartan
ECHO 07/11/2025:
1. Normal LV size, thickness, and systolic function. No wall motion abnormalities. LVEF 60-65%.
2. Mildly enlarged right ventricle with normal right ventricular systolic function.
3. Mild to moderate mitral regurgitation.
4. Pulmonary hypertension, est PASP 69 mmHg and est right atrium pressure 15 mmHg. Moderate tricuspid regurgitation.
5. Significant biatrial enlargement.
6. Compared to echocardiogram report dated 05/11/2020 pulmonary hypertension has increased from estimated 53 mmHg. MR and TR have progressed.
Physical Exam
Vital Signs/Labs
Vital Signs
Temp Pulse Resp BP Pulse Ox
97.8 F 67 18 122/67 97
07/12/25 03:30 07/12/25 03:30 07/12/25 03:30 07/12/25 03:30 07/12/25 03:30
07/11/25 07/12/25 07/13/25
06:59 06:59 06:59
Actual Weight 91.671 kg 88.621 kg
07/11/25 07:10
Magnesium 2.1 mg/dl (1.6-2.3) 07/11/25 07:10
Triglycerides 63 mg/dl (10-149) 07/11/25 07:10
LDL Cholesterol, Calc 46 mg/dl 07/11/25 07:10
VLDL Cholesterol, Calc 12 mg/dl (0-30) 07/11/25 07:10
HDL Cholesterol 49 mg/dl 07/11/25 07:10
07/10/25
13:23
Cgk-G-Wjdfeyuscwq Pept 1989
LAB Results
07/10/25
13:23
Troponin I < 0.012
Physical Exam
Constitutional: No acute distress and Comfortable
EENT: Anicteric and Moist mucous membranes
Cardiovascular: Rhythm/rate is irregular, Pedal edema present and S1S2 is normal
Respiratory: Respiratory effort normal, Lungs clear to auscul., Wheeze Absent, Crackles Absent and Rhonchi Absent
GI: Soft, Distention absent and Non tender
Neuro/Psych: AO x 3
Data Reviewed
-
Date of Service: July 12, 2025
[2025-07-12] MEDS: COZAAR 100 MG PO (08:29)
[2025-07-12] MEDS: ELIQUIS 5 MG PO ×2 (08:30→21:57)
[2025-07-12] MEDS: LOPRESSOR 50 MG PO ×2 (08:30→21:57)
[2025-07-12] MEDS: FEOSOL 325 MG PO (08:30)
[2025-07-12] MEDS: DELTASONE 5 MG PO (08:30)
[2025-07-12] MEDS: NORVASC 5 MG PO (08:30)
[2025-07-12 08:44] VITALS: BP 131/61
[2025-07-12 09:02] LABS: ALT (SGPT) 14 U/L (0-50); AST (SGOT) 27 U/L (17-59); Albumin 3.5 g/dl (3.5-5.0); Alkaline Phosphatase 123 U/L (38-126); Blood Urea Nitrogen 17 mg/dl (9-20); Calcium 8.5 mg/dl (8.4-10.2); Carbon Dioxide 24 mmol/L (22-30); Chloride 111 mmol/L (98-107); Estimated Creatinine Clearance 64 ml/min; Glucose 73 mg/dl (70-99); Magnesium 2.0 mg/dl (1.6-2.3); Potassium 3.9 mmol/L (3.5-5.1); Sodium 141 mmol/L (135-145); Total Protein 6.2 g/dl (6.3-8.2); eGFR > 60.00
[2025-07-12] MEDS: FLUSH (NSS) 2 FLUSH IV (09:16)
[2025-07-12] MEDS: LASIX 40 MG IV (09:16)
[2025-07-12 11:05] VITALS: BP 137/67
--- NOTE | 2025-07-12 11:23 | W.PN.HOSP.TC ---
Today's Communication/Plan
-
appropriate diuresis - lost 3kg overnight. COnt Lasix, plan on increased dose upon d/c
Assessment / Plan
Assessment / Plan
79yo M with PMHX of Afib, HTN, RA on prednisone 5mg, chronic venous insufficiency with b/l LE lymphedema s/p R saphenous ablatio with in May 2025 came with worsening swelling up to his thigh and lower abdomen that became progressively worse
for past few weeks. Patient was not much compliant with his compression therapy. Admitted with concern for CHF exacerbation
A/P:
#Acute CHF exacerbation, most likely diastolic
ProBNP elevated
Patient has rn appeals in [facility] - schedule appt [facility] upon d/c
Repat BMP in 1 week upon d/c
Echo EF 65%, mild-moderate MR, pulmonary HTN, significant biatrial enlargement
LAsix IV started and patient feeling better, however questionable if CHF exacerbation subacute or chronic
Daily weight, follow electrolytes, Cr
cardio consult
#b/l LE venous insufficiency
#Chronic R saphenous vein thrombus
US LE with non-occlusive thrombus in R saphenous vein
Eliquis cont
compression stockings up to the thigh advised
diuretics
Elevate LE
Cont to follow with established vascular and wound care
#elevated mixed bilirubinemia
#elevated alk.phos - resolved
most likely 2/2 congestion
no RUQ pain and no fevers, WBC WNL
Abd US: Normal appearance of the gallbladder with no evidence for biliary ductal dilation. No focal abnormality of the liver by ultrasound
follow LFT
#Chronic anemia, MARY
follo with PCP
cont PO iron
#Persistent Afib
#Essential HTN
#RA
cont home meds
DVT ppx Eliquis
Full code
I have spent at least 51 min reviewing chart, test results, communication with consultants and providing direct patient care
Anticipated Discharge: Within 24 hours
Subjective/Interval History
-
Date of Service: July 12, 2025
Objective Data
-
Labs:
Laboratory Results
07/12/25
07:35
Sodium 141
Potassium 3.9
Chloride 111 H
Carbon Dioxide 24
BUN 17
Creatinine 1.0
Glucose 73
Calcium 8.5
Total Bilirubin 1.4 H
AST 27
ALT 14
Alkaline Phosphatase 123
Vital Signs:
Vital Signs
Temp Pulse Resp BP Pulse Ox
97.9 F 73 18 131/61 98
07/12/25 08:44 07/12/25 08:44 07/12/25 08:44 07/12/25 08:44 07/12/25 08:44
I&O
07/11/25 07/12/25 07/13/25
06:59 06:59 06:59
Intake Total 240 / 240 240 / 240
Output Total 1100 / 1100 3070 / 3070
Balance -860 / -860 -2830 / -2830
Review of Systems
-
History Source: Patient
All other systems: Reviewed and negative
Physical Exam
-
General: No Apparent Distress
Musculoskeletal: Edema, Right Lower Extrem and Edema, Left Lower Extrem
Neuro: Awake, Alert, Oriented and AO x 3
Psych: Calm
--- NOTE | 2025-07-12 14:00 | CM ---
Chart Reviewed. MEt with pt bedside. ON IV lasix. NO change in D/C plans
PLan: HOme without needs
[2025-07-12 15:00] VITALS: BP 138/77
[2025-07-12 19:00] VITALS: BP 128/83
[2025-07-12 23:00] VITALS: BP 122/70
[2025-07-13 03:00] VITALS: BP 142/71
[2025-07-13 07:53] VITALS: BP 140/73
[2025-07-13] MEDS: DELTASONE 5 MG PO (08:17)
[2025-07-13] MEDS: FEOSOL 325 MG PO (08:17)
[2025-07-13] MEDS: LOPRESSOR 50 MG PO (08:17)
[2025-07-13] MEDS: ELIQUIS 5 MG PO (08:17)
[2025-07-13] MEDS: LASIX 40 MG IV (08:17)
[2025-07-13] MEDS: NORVASC 5 MG PO (08:25)
[2025-07-13] MEDS: COZAAR 100 MG PO (08:25)
[2025-07-13 08:40] LABS: Blood Urea Nitrogen 18 mg/dl (9-20); Calcium 8.5 mg/dl (8.4-10.2); Carbon Dioxide 26 mmol/L (22-30); Chloride 109 mmol/L (98-107); Estimated Creatinine Clearance 64 ml/min; Glucose 81 mg/dl (70-99); Potassium 3.7 mmol/L (3.5-5.1); Sodium 140 mmol/L (135-145); eGFR > 60.00
[2025-07-13 09:32] VITALS: BP 128/55; PULSE 80; O2SAT 99
--- NOTE | 2025-07-13 10:40 | W.PN.HOSP.TC ---
Addendum entered and electronically signed by Juan Lassiter MD 07/13/25 12:38:
DOnt use billing under this note, but use [facility] note billing instead
Original Note:
Today's Communication/Plan
-
swelling improving further
cont Lasix awating card reeval
Assessment / Plan
Assessment / Plan
79yo M with PMHX of Afib, HTN, RA on prednisone 5mg, chronic venous insufficiency with b/l LE lymphedema s/p R saphenous ablatio with in May 2025 came with worsening swelling up to his thigh and lower abdomen that became progressively worse
for past few weeks. Patient was not much compliant with his compression therapy. Admitted with concern for CHF exacerbation
A/P:
#Acute CHF exacerbation, most likely diastolic
ProBNP elevated
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 - schedule appt [facility] upon d/c
Repat BMP in 1 week upon d/c
Echo EF 65%, mild-moderate MR, pulmonary HTN, significant biatrial enlargement
LAsix IV started and patient feeling better, however questionable if CHF exacerbation subacute or chronic
Daily weight, follow electrolytes, Cr
cardio consult
#b/l LE venous insufficiency
#Chronic R saphenous vein thrombus
US LE with non-occlusive thrombus in R saphenous vein
Eliquis cont
compression stockings up to the thigh advised
diuretics
Elevate LE
Cont to follow with established vascular and wound care
#elevated mixed bilirubinemia
#elevated alk.phos - resolved
most likely 2/2 congestion
no RUQ pain and no fevers, WBC WNL
Abd US: Normal appearance of the gallbladder with no evidence for biliary ductal dilation. No focal abnormality of the liver by ultrasound
follow LFT
#Chronic anemia, MARY
follo with PCP
cont PO iron
#Persistent Afib
#Essential HTN
#RA
cont home meds
DVT ppx Eliquis
Full code
I have spent at least 51 min reviewing chart, test results, communication with consultants and providing direct patient care
Anticipated Discharge: Within 24 hours
Subjective/Interval History
-
Date of Service: July 13, 2025
Objective Data
-
Labs:
Laboratory Results
07/13/25
07:46
Sodium 140
Potassium 3.7
Chloride 109 H
Carbon Dioxide 26
BUN 18
Creatinine 1.0
Glucose 81
Calcium 8.5
Vital Signs:
Vital Signs
Temp Pulse Resp BP Pulse Ox
97.8 F 80 24 140/73 99
07/13/25 07:53 07/13/25 07:53 07/13/25 07:53 07/13/25 07:53 07/13/25 07:53
I&O
07/12/25 07/13/25 07/14/25
06:59 06:59 06:59
Intake Total 240 / 240 240 / 240
Output Total 3070 / 3070
Balance -2830 / -2830 240 / 240
Review of Systems
-
History Source: Patient
All other systems: Reviewed and negative
Physical Exam
-
General: No Apparent Distress
HEENT: Normocephalic
Respiratory: Clear to Auscultation
GI: Soft, Nontender and Nondistended
Musculoskeletal: No Clubbing, No Cyanosis, Edema, Right Lower Extrem and Edema, Left Lower Extrem
Skin: Warm
Neuro: Awake, Alert, Oriented and AO x 3
Psych: Calm
--- NOTE | 2025-07-13 10:52 | W.DCSUMMARY ---
Discharge Summary
Discharge Data
Date of Admission: 07/10/25
Date of Discharge: 07/13/25
-
Pending Results: No
Hospital Course
9yo M with PMHX of Afib, HTN, RA on prednisone 5mg, chronic venous insufficiency with b/l LE lymphedema s/p R saphenous ablatio with in May 2025 came with worsening swelling up to his thigh and lower abdomen that became progressively worse
for past few weeks. Patient was not much compliant with his compression therapy. Admitted with concern for CHF exacerbation. Improved on LAsix and as per card -can be d/c on increased dose to 40mg BID. Echo EF 65%, mild-moderate MR, pulmonary HTN,
significant biatrial enlargement. Outpatient Cardio f/u advised. Medically stable for d/c
I have spent at least 36 min reviewing chart, test results, communication with consultants and providing direct patient care
Patient was managed for:
#Acute CHF exacerbation, most likely diastolic
#b/l LE venous insufficiency
#Chronic R saphenous vein thrombus
#elevated mixed bilirubinemia
#elevated alk.phos - resolved
#Chronic anemia, MARY
#Persistent Afib
#Essential HTN
#RA
Discharge Plan
-
Patient Disposition: Home (Routine Discharge)
Discharge Diagnosis/Procedures: HFpEF
Diet: Low Sodium
Blood Work: repeat BMP with family doctor in 1 week
Activity Restrictions/Additional Instructions:
Watch systolic blood pressure to not to be less then 90mmHg - if noted, then remeasure in 1 hour and if still low - hold blood pressure medications and call doctor right away, if accompanied with dizziness and feeling that you will pass out - go to
ED
[facility]t with your existent toppiece cutter r toppiece cutter of your choice [facility]
Instructions: *PCP/Other [facility] Heart Failure Instructions
Referrals:
Donn Gottlieb MD [Family Provider, Family Practice]
Prescriptions:
New
furosemide [Lasix] 40 mg tablet
40 mg PO BID Qty: 60 0RF
Continued
Eliquis 5 MG tablet
5 mg PO BID Qty: 60 0RF
multivitamin Tablet
1 tab PO DAILY
prednisone 5 mg Tablet
5 mg PO DAILY
amlodipine 5 mg Tablet
5 mg PO DAILY
losartan 100 mg Tablet
100 mg PO DAILY
acetaminophen 650 mg Tablet Extended Release
1,300 mg PO [id number] PRN (Reason: mild pain)
ferrous sulfate 325 mg (65 mg iron) Tablet
325 mg PO DAILY
metoprolol tartrate [Lopressor] 50 mg Tablet
50 mg PO BID
Discontinued
furosemide 40 mg Tablet
40 mg PO DAILY
Discharge Orders:
Discharge Patient (As Directed); Ordered 07/13/25
Ordered By: Juan Lassiter
Discharge Date and Time
Print Language: FAROESE
--- NOTE | 2025-07-13 11:07 | CM ---
Patient is currently ambulating in room, home when stable.
Plan; Home when stable, no needs.
[2025-07-13 11:40] VITALS: BP 112/58
--- NOTE | 2025-07-13 12:36 | W.PN.CD ---
Today's Communication / Plan
-
- Weight improved (over 10 pounds since admission).
- Can discharge to home on Lasix 40 mg PO BID.
- Outpatient follow-up with primary [facility] (outside institution) for PCP within 1 week.
Impression / Plan
-
Mg is a 79-year-old male with a past medical history of atrial fibrillation (on Eliquis) status post cardioversion in 2019, possible CHF history, chronic venous insufficiency status post right great saphenous vein radioablation in May [address] Alicea, rheumatoid arthritis who presented with complaints of acute on chronic bilateral lower extremity swelling, scrotal edema, abdominal swelling over the last few weeks.
#Acute Exacerbation of HFpEF/chronic bilateral venous insufficiency
- proBNP on admission slightly elevated 1989, chest x-ray showing mild cardiomegaly, trace pleural effusion, slight prominence of pulmonary vasculature which appears stable
- Abd US (07/11) showing small R/LUQ ascites
- BL/LE US Doppler showing no DVT, soft tissue edema R>L, consistent with exam
- Weight significantly (over 10 pounds since admission).
- Can discharge to home on Lasix 40 mg PO BID.
#Persistent Atrial Fibrillation
- Remains rate controlled on BID Lopressor; continue current dose.
- Continue Eliquis
Valvular heart disease: Moderate TR, mild to moderate MR
- Volume management with Lasix.
#Essential Hypertension
- Fairly controlled on current medication regimen of amlodipine, lopressor, and losartan.
ECHO 07/11/2025:
1. Normal LV size, thickness, and systolic function. No wall motion abnormalities. LVEF 60-65%.
2. Mildly enlarged right ventricle with normal right ventricular systolic function.
3. Mild to moderate mitral regurgitation.
4. Pulmonary hypertension, est PASP 69 mmHg and est right atrium pressure 15 mmHg. Moderate tricuspid regurgitation.
5. Significant biatrial enlargement.
6. Compared to echocardiogram report dated 05/11/2020 pulmonary hypertension has increased from estimated 53 mmHg. MR and TR have progressed.
Physical Exam
Vital Signs/Labs
Vital Signs
Temp Pulse Resp BP Pulse Ox
98.0 F 59 16 112/58 100
07/13/25 11:40 07/13/25 11:40 07/13/25 11:40 07/13/25 11:40 07/13/25 11:40
07/12/25 07/13/25 07/14/25
06:59 06:59 06:59
Actual Weight 88.621 kg
07/11/25 07:10
07/13/25 07:46
Magnesium 2.0 mg/dl (1.6-2.3) 07/12/25 07:35
Triglycerides 63 mg/dl (10-149) 07/11/25 07:10
LDL Cholesterol, Calc 46 mg/dl 07/11/25 07:10
VLDL Cholesterol, Calc 12 mg/dl (0-30) 07/11/25 07:10
HDL Cholesterol 49 mg/dl 07/11/25 07:10
07/10/25
13:23
Xvc-O-Uhtohspijrn Pept 1989
LAB Results
07/10/25
13:23
Troponin I < 0.012
Physical Exam
Constitutional: No acute distress and Comfortable
EENT: Anicteric
Cardiovascular: Pedal edema is absent (1-2+ with bilateral erythema/venous stasis changes), Rhythm/rate is irregular, Systolic murmur present (Soft 2/6) and S1S2 is normal
Respiratory: Respiratory effort normal and Lungs clear to auscul.
GI: Soft
Neuro/Psych: AO x 3
Other: Skin (Warm)
Data Reviewed
-
Date of Service: July 13, 2025
EKG: Tracing Personally Visualized and interpreted (EKG: A-fib (rate-controlled))
Echo: Report Reviewed by me (07/11/2025: EF 60-65%; mild to moderate MR; moderate TR, PASP 69 mmHg.)
Medical Tests (PFT, Pathology etc): Discussed with Patient
Labs: Labs Reviewed by me
== END 2025-07-13 14:43 | disposition home or self-care (01) | DRG 291 ==
LOC: 4 WEST ACU 19:14
PROVIDERS: Emergency Medicine; Registered Nurse; ADMITTING PHYSICIAN Internal Medicine; ATTENDING PHYSICIAN Internal Medicine; EMERGENCY PHYSICIAN Emergency Medicine; FAMILY PHYSICIAN Family Medicine; OTHER PHYSICIAN Internal Medicine Cardiovascular Disease
DX: I11.0 Hypertensive heart disease with heart failure (principal); I50.33 Acute on chronic diastolic (congestive) heart failure; I82.811 Embolism and thrombosis of superficial veins of right lower extremity; R17 Unspecified jaundice; I48.21 Permanent atrial fibrillation; L97.919 Non-pressure chronic ulcer of unspecified part of right lower leg with unspecified severity; I87.2 Venous insufficiency (chronic) (peripheral); D50.9 Iron deficiency anemia, unspecified; M06.9 Rheumatoid arthritis, unspecified; I27.20 Pulmonary hypertension, unspecified; Z79.01 Long term (current) use of anticoagulants; N50.89 Other specified disorders of the male genital organs; Z87.891 Personal history of nicotine dependence; D63.8 Anemia in other chronic diseases classified elsewhere; T38.0X5A Adverse effect of glucocorticoids and synthetic analogues, initial encounter; Z79.52 Long term (current) use of systemic steroids; Z79.899 Other long term (current) drug therapy
CPT/HCPCS: 71046; 76700; 80048; 80053; 80061; 82248; 83615; 83735; 83880; 84443; 84484; 85025; 85027; 85045; 87070; 87147; 93005; 93306; 93970; 96374; 97116; 97162; 99285